=== PATIENT | male | born 1970 | race Caucasian/White ===

== ENCOUNTER 2018-03-24 10:26 | Emergency (ER) | payer BC ==
[~2018-03-24] VITALS: Ht 177.8 cm; Wt 89.5 kg
[2018-03-24] MEDS ORDERED: LORTAB 5-325 M1 EACH PO (12:15)
[2018-03-24 12:53] VITALS: BP 137/90
== END 2018-03-24 12:57 | disposition home or self-care (01) ==
LOC: EME 10:26
DX: S92.421A Displaced fracture of distal phalanx of right great toe, initial encounter for closed fracture (principal); S90.31XA Contusion of right foot, initial encounter; W21.89XA Striking against or struck by other sports equipment, initial encounter
CPT/HCPCS: 73630; 99281; 99283